=== PATIENT | female | born 1975 | race Caucasian/White ===

== ENCOUNTER → 2017-06-25 13:58 | Outpatient (CLI) | payer MEDICAID, SELFPAY ==
--- NOTE | 2017-06-25 14:02 | RAD_ITS ---
STUDY: X-RAY - LEFT RADIUS AND ULNA REASON FOR EXAM: Female, 41 years old. Wrist pain TECHNIQUE: 2 view(s) of the forearm. COMPARISON: None. FINDINGS: There is no demonstrated soft tissue swelling. Normal visualized radius. Normal visualized ulna. There are cystic changes in the lunate RAD/Forearm 2 Views IMPRESSION: Normal x-ray examination of the radius and ulna. Cystic changes in the lunate Electronically Signed: Manuel Booker MD, FACR at 14:39 EST , Service support ,
== END ==
PROVIDERS: Family Provider Family Medicine; PCP Family Medicine; Visit Provider Orthopaedic Surgery
DX: M25.532 Pain in left wrist (principal)
CPT/HCPCS: 73090

== ENCOUNTER → 2017-07-02 15:28 | Outpatient (CLI) | payer MEDICAID, SELFPAY ==
--- NOTE | 2017-07-02 15:30 | US_ITS ---
STUDY: SUPERFICIAL ULTRASOUND - LEFT WRIST. REASON FOR EXAM: Female, 41 years old. Possible ganglion cyst. TECHNIQUE: A superficial ultrasound was performed with real-time and static webber-scale imaging. COMPARISON: None. FINDINGS: The palpable abnormality corresponds to a 7 mm x 7 mm x 5 mm hypoechoic nodule most likely representing a ganglion cyst. US/Ext Non Vasc Limited/Soft Tiss IMPRESSION: The palpable abnormality most likely corresponds to a ganglion cyst. Electronically Signed: Vasile Hernandez MD at 7:56 EST Tel [phone], Service support ,
== END ==
PROVIDERS: Family Provider Family Medicine; PCP Family Medicine; Visit Provider Orthopaedic Surgery
DX: M67.40 Ganglion, unspecified site (principal)
CPT/HCPCS: 76882

== ENCOUNTER 2017-08-18 15:26 | Emergency (ER) | payer MEDICAID, SELFPAY ==
[2017-08-18 15:27] VITALS: BP 141/94; PULSE 114; RESP 16; TEMP 36.9; O2SAT 98; BMI 28.3
--- NOTE | 2017-08-18 15:40 | ED.VISSUMM ---
- ER Visit Summary Date of Service: 08/18/17 Chief Complaint: [] Migraine headache History of Present Illness: The patient is a 41 F [] complaining of 2 days of migraine headache. Reports she recently seen by her new neurologist who started her on Topamax last week. She reports she has had increased stress test her daughter is admitted here currently for appendicitis. She reports mild nausea. Denies vomiting. No other complaints at this time. Reports a history of migraines for several years. Physical Examination: [] Afebrile, vital signs stable. 41-year-old female no acute distress. Cardiovascular exam is regular rate and rhythm. Lungs are clear to auscultation. Abdomen is soft and nontender. Test Results: [] None. Emergency Department Course and Treatment: [] Patient given intravenous fluids, Compazine, Toradol, Benadryl. On serial exam she had improvement of symptoms. Treatment Plan: [] Follow-up with neurologist. Disposition: [] Discharge, stable. Impression: [] Migraine headache This note was generated with [employer] dictation software. It may contain incorrect words, spelling, and punctuation that were not noted in review of the chart prior to signing ED Disposition - Plan for ED Patient: Chief Complaint: Headache Referrals: Dalton Ferrari MD [Primary Care Provider] -
[2017-08-18] MEDS: Ketorolac 30 MG/ML Syringe 15 MG IV (16:12)
[2017-08-18] MEDS: DiphenhydrAMINE 50 MG/ML Syringe 25 MG IV (16:12)
[2017-08-18] MEDS: proCHLORPERazine 10 MG/2 ML Vial IM (16:12)
--- NOTE | 2017-08-18 17:08 | ED.DEP ---
ED Disposition - Plan for ED Patient: Disposition: Home or Assisted Living Chief Complaint: Headache Instructions: ED Headache Migraine Referrals: Dalton Ferrari MD [Primary Care Provider] -
== END 2017-08-18 17:30 | disposition home or self-care (01) ==
PROVIDERS: Emergency Provider Emergency Medicine; Family Provider Family Medicine; PCP Family Medicine
DX: G43.909 Migraine, unspecified, not intractable, without status migrainosus (principal); Z79.899 Other long term (current) drug therapy; Z72.0 Tobacco use
CPT/HCPCS: 96361; 96372; 96374; 96375; 99283; J7030; J7040; A4216

== ENCOUNTER → 2017-08-22 13:16 | Outpatient (CLI) | payer MEDICAID, SELFPAY ==
--- NOTE | 2017-08-22 13:15 | MRI_ITS ---
STUDY: MRI BRAIN WITHOUT CONTRAST REASON FOR EXAM: Female, 41 years old. Increasing headaches TECHNIQUE: Standardized multiplanar fat and water weighted pulse sequences were obtained. COMPARISON: CT of the brain on March 19, 2017 FINDINGS: Normal size of the ventricles and extra-axial spaces for the patient's age. There are a few high signal densities within the periventricular white matter without mass effect or restricted diffusion. Normal bilateral basal ganglia. Normal thalami. There is no extra-axial fluid accumulation. On the gradient echo weighted imaging sequence there are foci of signal dropout in the right frontal lobe which may be secondary to prior hemorrhagic contusions. Normal flow voids within the major intracranial circulation suggesting patency by spin echo criteria. Normal sella turcica, pituitary gland, infundibular stalk, optic chiasm and hypothalamus. Normal tectal plate and pineal gland. Normal midbrain, viv and medulla. Normal cerebellum. Normal basal cisterns. Normal bilateral temporal bones. Normal bilateral internal auditory canals. No demonstrated orbital abnormality, within the constraints of a routine brain study. Normal visualized paranasal sinuses. Normal calvarium and skull base. Normal visualized soft tissue structures. Normal visualized upper cervical spine. MRI/Brain without Contrast IMPRESSION: Minor nonspecific white matter disease most likely small vessel ischemic changes without evidence for acute infarct. . Findings which may be consistent with old posttraumatic hemorrhagic contusions in the right frontal lobe however clinical correlation is recommended in this regard. Electronically Signed: Segun Garnett MD at 16:27 EDT , Service support ,
== END ==
PROVIDERS: Family Provider Family Medicine; PCP Family Medicine; Visit Provider Psychiatry & Neurology Neurology
DX: R51 Headache (principal)
CPT/HCPCS: 70551

== ENCOUNTER 2017-09-09 18:34 | Emergency (ER) | payer MEDICAID, SELFPAY ==
[2017-09-09 18:36] VITALS: BP 140/107; PULSE 135; RESP 17; TEMP 36.7; O2SAT 96; BMI 28.2
[2017-09-09] MEDS: proCHLORPERazine 10 MG/2 ML Vial IV (19:09)
[2017-09-09] MEDS: Ketorolac 30 MG/ML Syringe IV (19:09)
[2017-09-09] MEDS: MethylPREDNISolone 125 MG/2 ML Vial IV (19:09)
[2017-09-09] MEDS: DiphenhydrAMINE 50 MG/ML Syringe 25 MG IV (19:09)
[2017-09-09] MEDS: 0.9% Normal Saline 1,000 ML 999 ML IV (19:09)
--- NOTE | 2017-09-09 20:58 | ED.VISSUMM ---
- ER Visit Summary Date of Service: 09/09/17 Chief Complaint: Headache History of Present Illness: The patient is a 41 F presenting for evaluation secondary to headache. Patient has an underlying history of migraines, she is on Imitrex and Topamax. Patient states that she has had a headache of gradual onset since yesterday. She describes it as a throbbing bitemporal headache worse with exposure to light and has been associated with nausea vomiting and preceding aura. Patient states that taking Imitrex as well as Excedrin has alleviated this. She denies any recent fevers head injuries neck stiffness or rashes. Review of systems otherwise negative. Physical Examination: Vital signs: Within normal limits General: Well-nourished well-developed no acute distress Head: Normocephalic atraumatic, no temporal artery tenderness or vesicular rash noted. No sinus tenderness to percussion. Eyes: PERRLA, EOMI. Direct funduscopy shows no evidence of hemorrhage or papilledema. Neck: Supple, no lymphadenopathy, no JVD no meningismus. Negative Brudzinski, Kernig, jolt, and heel strike Cardiovascular: Heart regular rate and rhythm no murmurs Respiratory: Lung sounds clear to auscultation bilaterally no respiratory distress Abdomen: Soft, nontender Extremities: Nontender, no edema Skin: Normal color, no rash, no evidence of petechia Neuro: Alert and oriented ?4, cranial nerves II through XII intact, normal strength, sensation Test Results: None indicated Emergency Department Course and Treatment: Patient presented secondary to a migraine headache. There is no indication for neuroimaging. Patient was treated with Compazine Toradol and Benadryl had some dramatic improvement on repeat evaluation. At this point patient was discharged with continued home management follow-up with neurology. Disposition: Discharge Impression: 1. Migraine headache without status migrainosus, not intractable This note was generated with [employer] dictation software. It may contain incorrect words, spelling, and punctuation that were not noted in review of the chart prior to signing ED Disposition - Plan for ED Patient: Disposition: Home or Assisted Living Chief Complaint: Headache Diagnosis: Migraine Instructions: ED Headache Migraine Additional Instructions: Followup with neurology
[2017-09-09 21:06] VITALS: BP 130/99; PULSE 122; RESP 19; O2SAT 98
--- NOTE | 2017-09-09 21:07 | ED.RN ---
IV DC'ED, CATHETER INTACT, SMALL GAUZE DRESSING PLACED. DISCHARGE INSTRUCTIONS GIVEN TO AND REVIEWED WITH PATIENT, PATIENT DENIES QUESTIONS OR CONCERNS AND VOICES UNDERSTANDING OF DISCHARGE INSTRUCTIONS. PT AMBULATES OUT OF ROOM WITHOUT DIFFICULTY.
== END 2017-09-09 21:07 | disposition home or self-care (01) ==
PROVIDERS: Emergency Provider Emergency Medicine; Family Provider Family Medicine; PCP Family Medicine
DX: G43.909 Migraine, unspecified, not intractable, without status migrainosus (principal); Z79.899 Other long term (current) drug therapy
CPT/HCPCS: 96361; 96374; 96375; 99283; J7030; A4216

== ENCOUNTER 2017-10-12 19:02 | Emergency (ER) | payer MEDICAID, SELFPAY ==
[2017-10-12 19:03] VITALS: BP 127/81; PULSE 78; RESP 17; TEMP 37.4; O2SAT 95; BMI 28.3
--- NOTE | 2017-10-12 19:51 | ED.VISSUMM ---
- ER Visit Summary Date of Service: 10/12/17 Chief Complaint: [] Right lower dental pain for weeks History of Present Illness: The patient is a 41 F [] weeks of complaints of pain to the right lower tooth she can get a ride to the dentist office she comes to the emergency department no fever no cough no facial swelling has had dental cavities in the past and believes she has one now involving this tooth Denies any past history or complaints Physical Examination: [] She is in no distress her vital signs are within normal range she points to 1 of the right lower teeth incisor/ canine does appear to have possibly an early cavity at the very top of the tooth. The gingival gumline is not involved no swelling the floor the mouth and tongue are unremarkable her speech is normal there is no facial swelling full mouth opening no redness no warmth no drainage the rest of her exams unremarkable see the template Test Results: [] Emergency Department Course and Treatment: [] to her that chronic dental pain really cannot be managed in the emergency department she will be started on Pen-Vee K Naprosyn I explained her she must follow-up and see a dentist for this condition and she will do so Treatment Plan: [] Disposition: [] Home stable Impression: [] rt Lower dental pain This note was generated with [employer] dictation software. It may contain incorrect words, spelling, and punctuation that were not noted in review of the chart prior to signing ED Disposition - Plan for ED Patient: Chief Complaint: Dental Referrals: Dalton Ferrari MD [Primary Care Provider] -
--- NOTE | 2017-10-12 19:53 | ED.DEP ---
ED Disposition - Plan for ED Patient: Chief Complaint: Dental Instructions: ED Cavity Dental Prescriptions: Naproxen [Naprosyn] 500 mg PO BID PRN #20 tab Penicillin V Potassium 500 mg PO 4X/DAY #40 tab Referrals: Dalton Ferrari MD [Primary Care Provider] -
[2017-10-12] MEDS: Ketorolac 60 MG/2 ML Vial IM (19:55)
[2017-10-12 20:15] VITALS: PULSE 76; RESP 16
== END 2017-10-12 20:15 | disposition home or self-care (01) ==
LOC: ED 19:50
PROVIDERS: Emergency Provider Emergency Medicine; Family Provider Family Medicine; PCP Family Medicine
DX: K08.89 Other specified disorders of teeth and supporting structures (principal); Z79.899 Other long term (current) drug therapy
CPT/HCPCS: 96372; 99283

== ENCOUNTER 2018-02-05 11:42 | Day surgery (SDC) | payer MEDICAID, SELFPAY ==
[2018-02-05 12:11] VITALS: BP 119/82; PULSE 80; RESP 18; TEMP 36.6; O2SAT 98; BMI 27.1
--- NOTE | 2018-02-05 13:15 | GANG_PTH ---
PATIENT: ADRIANNA ALATORRE LOC: [facility] – [place] U#:[id number] AGE/SX: 42/F ROOM: RE02/05/[address]: Dr. Anjana Moon DO : 1975 BED: DIS: 02/05/2018 SPEC #: [id number] RECD: 02/05/18 16:17 STATUS: ENZO GIULIA #: [id number] MIMA: 02/05/18 13:[address]: Anjana Moon DEPT: SURGICAL PATHOLOGY RECD BY: Graham Rowan ENTERED: 02/06/18 09:21 SP TYPE: GANGLION OTHR DR: Dr. Dalton Ferrari MD Tissues: GANGLION CYST Procedures: Surgery Specimen Level III HEADER OPERATION: Excision, ganglion, wrist PRE-OP DIAGNOSIS: Ganglion cyst TISSUE SUBMITTED: Ganglion cyst MICROSCOPIC DIAGNOSIS Ganglion cyst, biopsy: A piece of fibroadipose and fibroconnective tissue with reactive changes. See comment. SJ:patricia 02/07/18 COMMENT Changes consistent with ganglion cyst are not seen. MICROSCOPIC DESCRIPTION Slides are reviewed. GROSS DESCRIPTION Received in fixative is one container labeled with the patient's name and designated left wrist. The specimen consists of a piece of light yellow adipose soft tissue measuring 1 x 0.6 x 0.5 cm. The specimen is bisected and submitted entirely in one cassette. / BABS:patricia 02/06/18 TC:5 CPT: 24517
[2018-02-05] MEDS: Cefazolin 2 GM in 0.9% Normal Saline 100 ML IV (15:22)
--- NOTE | 2018-02-05 15:27 | DCINST_ITS ---
Discharge Diet: No Restrictions - leave dressing clean, dry, and intact; follow up in 2 wks, call with concern Discharge Activity: May Not Drive May shower in (days): 1 Ice area for (Minutes): 20 - Every hour while awake. Weight Bearing Status: Weight bearing as tolerated Keep extremity elevated above heart level: Operative Extremity Call your doctor if your incision/area has: Continuous Slow Oozing, Sudden I ncreased Bleeding, Increased Pain/ Swelling, Increased Redness, Foul Smelling Discharge Call your doctor if you observe: Fever of 101 or Higher, Coldness, Increased Pain, Numbness or Tingling, Change in Color, Calf discomfort Allergies/Adverse Reactions: Allergies atorvastatin calcium [From Lipitor] Allergy (Verified 01/30/18 08:58) Other NUMBNESS,INCREASED HR venom-honey bee [bee venom (honey bee)] Allergy (Verified 01/30/18 08:58) Swelling sertraline HCl [From Zoloft] Adverse Reaction (Verified 01/30/18 08:58) Other Medications to take at Discharge Epinephrine [Epi Pen] 0.3 mg IM X1 07/11/16 Diazepam 2 mg PO PRN PRN 02/08/17 Topiramate [Topamax] 50 mg PO QHS 08/18/17 Sumatriptan Succinate 100 mg PO PRN PRN 09/09/17 Metoprolol Tartrate [Lopressor (Beta Zoey)] 50 mg PO DAILY 10/12/17 Acetaminophen/Codeine #3 [Tylenol #3 Tablet] 1 - 2 tablet PO Q6H PRN PRN #30 tablet 02/05/18 The following prescriptions were given: Acetaminophen/Codeine #3 [Tylenol #3 Tablet] 1 - 2 tablet PO Q6H PRN PRN #30 tablet PRN Reason: Pain Primary Care Physician: Dalton Ferrari MD [Primary Care Provider] - Test Results: Test results from this visit will be discussed in further detail at your follow- up appointment, if applicable. Please Follow Up With: Anjana Moon, DO - [phone]
--- NOTE | 2018-02-05 15:28 | OP.PCM_ITS ---
Report of Operation Date of Procedure: 02/05/18 Pre-Operative Diagnosis: left painful volar ganglion cyst Post-Operative Diagnosis: left volar flexor tenosynovitis Surgery/Procedure Performed:: left volar flexor synovitis excision business applications analyst: Hi Moses Type of Anesthesia:: Block,[place] Anesthesiologist: Wil Casey Estimated Blood Loss (mL): minimal Fluids Replaced: 800ml lr Description of Procedure: Preoperative note Preoperative note Patient is a 42-year-old with pain along her volar radial aspect of her wrist ultrasound shows questionable ganglion cyst but is quite small. At this point because she is having so much pain we are going to do an evaluation to see if it is truly a ganglion cyst versus synovitis or some the else going on. Wrist benefits alternatives surgery discussed with patient. Risks include but not limited to blood loss, blood clot, infection, neurovascular injury, failure procedure, loss of life and loss of limb. Patient is aware like proceed with left volar cyst versus synovial tissue versus lipoma excision. Next Operative note Patient seen and examined preoperative holding area. Left wrist was marked. Who palpated the superficial nodule. Patient was brought to the operating room placed supine on the operating table. Sign, anesthesia, antibiotics were measured. The patient received a Dannielle block. We then prepped and draped the arm in standard fashion the incision was marked out on top of the palpable nodule. Timeout was performed. We then used forceps to ensure that there was no pain sure that the block was working which it was. We then made a 2 cm incision over top of the palpable lump we dissected down with tenotomies to the level of the palpable nodule. It appeared to be a synovitis wrapped around the flexor tendons. These were excised and sent to pathology for further evaluation. There is no other defects we were able to palpate all the way down to the where the nerve in the bone as there is no obvious other mass or tumor or other lesion distal aspect of the wrist just this synovitis that was around the flexor tendon sheath. We then irrigated the incision with copious amounts of saline and the incision was closed with interrupted 4 nylons nylon in a sterile dressing. The tourniquet was deflated for a total working time of 32 minutes. Patient tolerated procedure well and there were no complications. Transferred to recovery room in stable condition. Postoperative note Follow-up in 2 weeks for suture removal next Follow-up call with concerns leave dressing intact Pharmacy has prescriptions This note was generated with [employer] dictation software. It may contain incorrect words, spelling, and punctuation that were not noted in checking the note before signing.
[2018-02-05] MEDS: Mupirocin Ointment 22gm Tube 1 APPLIC (15:47)
[2018-02-05 16:17] VITALS: BP 115/77; BP 119/82; PULSE 80; RESP 16; TEMP 37.1; O2SAT 97
[2018-02-05 16:25] VITALS: BP 117/80; BP 119/82; PULSE 81; RESP 14; O2SAT 99
[2018-02-05 16:29] VITALS: BP 112/73; BP 119/82; PULSE 77; RESP 16; O2SAT 98
[2018-02-05 17:00] VITALS: BP 119/82
== END 2018-02-05 16:59 | disposition home or self-care (01) ==
LOC: SDC 11:43 → AC 11:44
PROVIDERS: Family Provider Family Medicine; PCP Family Medicine; Visit Provider Orthopaedic Surgery
PROC: (CPT 25105; principal; 2018-02-05 13:00)
DX: M67.432 Ganglion, left wrist (principal); M65.88 Other synovitis and tenosynovitis, other site; I10 Essential (primary) hypertension; G43.909 Migraine, unspecified, not intractable, without status migrainosus; F41.9 Anxiety disorder, unspecified; F17.200 Nicotine dependence, unspecified, uncomplicated; Z79.899 Other long term (current) drug therapy
CPT/HCPCS: 01810; 25105; 88304; J7120; J2405

== ENCOUNTER 2018-02-18 18:55 | Emergency (ER) | payer MEDICAID, SELFPAY ==
[2018-02-18 18:56] VITALS: BP 150/89; PULSE 75; RESP 16; TEMP 36.1; O2SAT 99; BMI 27.3
--- NOTE | 2018-02-18 19:43 | ED.VISSUMM ---
- ER Visit Summary Date of Service: 02/18/18 Chief Complaint: Left wrist pain History of Present Illness: The patient is a 42 F who had left wrist surgery 2 weeks ago. She has small lipoma removed from a tendon. Stitches were supposed to come out today, but patient states that 3 of the stitches were left in because the wound was still moist. Steri-Strips were placed. She states that she used her left hand today and felt a pop along the wrist followed by a throbbing sensation. The ulnar side of the incision is now more swollen. She complains of pain radiating up the wrist and into the palm. Physical Examination: Vital signs unremarkable. Patient sitting in a bedside chair. Left upper extremity examination reveals incision on the volar aspect of the left wrist with Steri-Strips and sutures intact. There is minimal fullness with early ecchymosis along the ulnar side of the incision. There is increased pain with wrist extension. She has normal cap refill and sensation. Test Results: [] Emergency Department Course and Treatment: I spoke with Dr. Moon. Patient is to be treated with anti-inflammatories and the PA will see her in the office this week for follow-up. Gauze and Gideon wrap are applied to the area. Patient is given a new prescription for naproxen. Treatment Plan: [] Disposition: Discharge Impression: Left wrist postop pain This note was generated with [employer] dictation software. It may contain incorrect words, spelling, and punctuation that were not noted in review of the chart prior to signing ED Disposition - Plan for ED Patient: Disposition: Home or Assisted Living Chief Complaint: Upper Extremity Injury Instructions: ED Wound Check Post Op No Infec Prescriptions: Naproxen [Naprosyn] 500 mg PO BID PRN PRN #20 tablet PRN Reason: Pain Referrals: Anjana Moon DO [STAFF PHYSICIAN] - 2 Days Additional Instructions: Follow-up with PA in Dr Moon's office this week
[2018-02-18 19:49] VITALS: BP 127/92; PULSE 69; RESP 16; O2SAT 97
[2018-02-18 19:56] VITALS: BP 127/92; PULSE 68; RESP 16; O2SAT 98
== END 2018-02-18 19:59 | disposition home or self-care (01) ==
PROVIDERS: Emergency Provider Emergency Medicine; Family Provider Family Medicine; PCP Family Medicine
DX: G89.18 Other acute postprocedural pain (principal); M25.532 Pain in left wrist; Z72.0 Tobacco use; Z79.899 Other long term (current) drug therapy
CPT/HCPCS: 99282

== ENCOUNTER → 2018-10-08 | Outpatient (CLI) | payer MEDICAID, SELFPAY ==
[2018-09-18 10:39] VITALS: BMI 27.4
--- NOTE | 2018-10-08 16:12 | MRI_ITS ---
STUDY: MRI RIGHT SHOULDER REASON FOR EXAM: Chronic right shoulder pain, limited range of motion. TECHNIQUE: Standardized fat and water weighted pulse sequences were obtained in all 3 orthogonal planes. COMPARISON: Radiographs 07/09/2016. FINDINGS: There is a signal void in the distal anterior supraspinatus tendon (proton density coronal image 15) measuring 0.9 cm in length consistent with calcific tendinitis. There is no discrete tear of the supraspinatus tendon. There is mild infraspinatus tendinosis (T2 coronal image 8) without discrete tendon tear. Normal subscapularis tendon. Normal teres minor tendon. Normal supraspinatus muscle. Normal infraspinatus muscle. Normal subscapularis muscle. Normal teres minor muscle. Normal glenohumeral articulation. Normal humeral head and visualized proximal humerus. Normal biceps labral complex. Normal intracapsular long biceps tendon. Normal labrum. Normal capsulo- ligamentous complex. Normal acromioclavicular articulation. There is a Type II morphology (curved), with a neutral orientation. There is no subacromial-subdeltoid bursal fluid. Normal visualized coracohumeral and coracoacromial ligaments. Normal deltoid muscle. Normal trapezius muscle. MRI/Upper Ext Joint Only(Routine) IMPRESSION: Supraspinatus calcific tendinitis without demonstrated rotator cuff tear. Mild infraspinatus tendinosis. Electronically Signed: Giuseppe Lazaro MD at 7:42 EDT Tel , Service support ,
== END | disposition home or self-care (01) ==
LOC: MRI 16:01
PROVIDERS: Family Provider Family Medicine; PCP Family Medicine; Referring Provider Orthopaedic Surgery; Visit Provider Orthopaedic Surgery
DX: M75.101 Unspecified rotator cuff tear or rupture of right shoulder, not specified as traumatic (principal); M75.31 Calcific tendinitis of right shoulder
CPT/HCPCS: 73221

== ENCOUNTER 2018-10-29 08:23 | Day surgery (SDC) | payer MEDICAID, SELFPAY ==
[2018-10-14 14:18] VITALS: BMI 27.4
--- NOTE | 2018-10-21 11:23 | HP_ITS ---
Insert insert H&P no changes I have re-examined the patient. There are no clinical changes since date of exam. Intake Vital Signs 10/14/18 Body Mass Index (BMI) 27.4 Intake Visit Reasons: RIGHT SHOULDER Chief Complaint: Right shoulder Allergies atorvastatin calcium [From Lipitor] Allergy (Verified 09/18/18 10:39) Other venom-honey bee [bee venom (honey bee)] Allergy (Verified 09/18/18 10:39) Swelling codeine [From Tylenol-Codeine] Adverse Reaction (Verified 09/18/18 11:21) headache sertraline HCl [From Zoloft] Adverse Reaction (Verified 09/18/18 10:39) Other Medications Epi Pen (for allergic rxn) [Epi Pen] 0.3 mg IM X1 07/11/16 [History Confirmed 02/18/18] Diazepam 2 mg PO PRN PRN 02/08/17 [History Confirmed 02/18/18] Topiramate [Topamax] 50 mg PO QHS 08/18/17 [History Confirmed 02/18/18] Sumatriptan Succinate 100 mg PO PRN PRN 09/09/17 [History Confirmed 02/18/18] Metoprolol Tartrate [Lopressor (Beta Zoey)] 50 mg PO DAILY 10/12/17 [History Confirmed 02/18/18] Naproxen [Naprosyn] 500 mg PO BID PRN PRN #20 tab 02/18/18 [Rx] PFSH Medical History History of hysterectomy (Acute) history of right femur surgry (Acute) Migraines (Chronic) Surgical History History of cholecystectomy (Acute) History of endometrial ablation (Acute) Status post correction of deviated nasal septum (Acute) S/P cholecystectomy (Inactive) broken femur (Inactive) Family History Mother Parkinsons disease Other Myocardial infarction Social History Smoking Status: Current every day smoker alcohol intake: never substance use type: does not use what type of physical activity do you participate in: walking frequency: 1-2 times per week HPI RIGHT SHOULDER: Surgical H&P: Yes Details: Parts of this documentation were recorded by a scribe, this documentation accurately reflects the service provided and the decisions made by me, Anjana Moon, 10/14/18 [id number]. ADRIANNA ALATORRE is a 42 year old F here today for F/U after MRI of right shoulder. Patient states her pain has not gotten any better. Denies numbness, tingling or other associated symptoms.Denies numbness, tingling or other associated symptoms. Reports that the injection given 06/16/18 was not effective for her pain as previously have been. Did not consult with pain management for her pain. ROS Const Reports system reviewed and no additional complaints, except as docu Eyes Reports system reviewed and no additional complaints, except as docu ENT Reports system reviewed and no additional complaints, except as docu Card Reports system reviewed and no additional complaints, except as docu Resp Reports system reviewed and no additional complaints, except as docu GI Reports system reviewed and no additional complaints, except as docu Musc Reports as per HPI Skin/Breast Reports system reviewed and no additional complaints, except as docu Neuro Yes system reviewed and no additional complaints, except as docu Psych Reports system reviewed and no additional complaints, except as docu Endo Reports system reviewed and no additional complaints, except as docu Palmer/Lymph Reports system reviewed and no additional complaints, except as docu Aller/Immun Reports system reviewed and no additional complaints, except as docu Ortho Exam Right Shoulder Testing: Positive Hawkin's, Neer's, Speed's, TTP Biceps, AROM-Forward Elevation 0-180, AROM-External Rotation at 90 0-60, AROM-External Rotation at side 0-60, PROM-External Rotation at side 0-60, PROM-External Rotation at 90 0-60 and PROM- Forward Elevation 0-180 Assessment & Plan Problems 1. Calcific tendinitis of right shoulder M75.31 Plan Reviewed the MRI report. Since patient has failed conservative tx she was educated that she could have surgery for calcific tendonitis debridement with possible RTC reconstruction along with subacromial decompression and repair as indicated. Patient would like to proceed with surgery since she has not had had the pain for 2 years and injections are not working as they were previously. Reviewed the pre-operative plans with the patient. Risks and benefits of the procedure were fully explained, including but not limited to infection, neurovascular injury, continued pain, arthritis, stiffness, need for further surgery, re-injury, DVT, PE, general risks of anesthesia, and loss of limb or life. The patient understands all the risks and does wish to proceed with written consent. Follow up 2 weeks post op or sooner if pain, swelling, numbness or associated symptoms, or concerns develop. All questions answered. Patient in agreement of plan. Coding Level of Care Code Off vis,est,level 4 Diagnoses Calcific tendinitis of right shoulder M75.31 10/21/18 1123 <Electronically signed by Anjana carter DO> Date _ Anjana Moon DO
[2018-10-29] VITALS (7 sets, daily range): BP systolic 110–144; BP diastolic 69–85; PULSE 55–73; RESP 16–18; TEMP 36.3–37.1; O2SAT 92–100; BMI 27.4
--- NOTE | 2018-10-29 08:34 | EKG12_ITS ---
Test Reason : PREOP Blood Pressure : / mmHG Vent. Rate : 053 BPM Atrial Rate : 053 BPM P-R Int : 188 ms QRS Dur : 070 ms QT Int : 400 ms P-R-T Axes : 011 007 010 degrees QTc Int : 375 ms Sinus bradycardia with sinus arrhythmia Otherwise normal ECG When compared with ECG of 16-JUL-2016 15:26, Vent. rate has decreased BY 44 BPM QT has shortened Confirmed by MOUNIKA ESTRELLA, HUDSON ([id number]), magazine editor GARIMA BAEZA ([id number]) on 11/04/2018 7:16:33 AM Referred By: Anjana Moon Confirmed By:JIMY RIBERA MD
[2018-10-29 09:05] LABS: Hematocrit 41.2 % (37-47); Hemoglobin 13.8 g/dl (12.0-15.0); Mean Corp Hgb Conc 33.5 g/gl (32-36); Mean Corpuscular Hgb 31.3 pg (27.0-32.0); Mean Corpuscular Volume 93.4 fL (81-99); Mean Platelet Vol. 10.3 fl (6.2-12.0); Platelet Count 313 K/mm3 (150-450); RBC Distribution Width CV 13.7 % (11.6-14.6); RBC Distribution Width SD 46.9 fl (35.1-43.9); Red Blood Count 4.41 M/mm3 (4.2-5.4); White Blood Count 8.5 K/mm3 (4.4-11.0)
[2018-10-29 09:08] LABS: Scan Indicated on CBC? Y/N NO
[2018-10-29 09:15] LABS: Partial Thromboplast Time 36.8 Seconds (24.1-36.2)
[2018-10-29] MEDS: Cefazolin 2 GM in 0.9% Normal Saline 100 ML IV (11:13)
--- NOTE | 2018-10-29 11:22 | PCM.DC.ORTHO ---
Discharge Diet: No Restrictions - remove dressings in 4 days and apply bandaids to incision sites, follow up in 2 weeks, call with concerns, may bend and extend the elbow but no active range of motion of shoulder. May remove sling to shower. Discharge Activity: May Not Drive May shower in (days): 1 Ice area for (Minutes): 20 - Every hour while awake. Weight Bearing Status: Weight bearing as tolerated Keep extremity elevated above heart level: Operative Extremity Call your doctor if your incision/area has: Continuous Slow Oozing, Sudden Increased Bleeding, Increased Pain/ Swelling, Increased Redness, Foul Smelling Discharge Call your doctor if you observe: Fever of 101 or Higher, Coldness, Increased Pain, Numbness or Tingling, Change in Color, Calf discomfort Allergies/Adverse Reactions: Allergies atorvastatin calcium [From Lipitor] Allergy (Verified 10/22/18 09:08) Other NUMBNESS,INCREASED HR venom-honey bee [bee venom (honey bee)] Allergy (Verified 10/22/18 09:08) Swelling codeine [From Tylenol-Codeine] Adverse Reaction (Verified 10/22/18 09:08) headache MIGRAINE sertraline HCl [From Zoloft] Adverse Reaction (Verified 10/22/18 09:08) Other Medications to take at Discharge Epi Pen (for allergic rxn) [Epi Pen] 0.3 mg IM X1 07/11/16 Diazepam 2 mg PO PRN PRN 02/08/17 Sumatriptan Succinate 100 mg PO PRN PRN 09/09/17 Metoprolol Tartrate [Lopressor (Beta Zoey)] 50 mg PO BID 10/12/17 Oxycodone HCl/Acetaminophen [Percocet 5/325] 1 - 2 tab PO Q6H PRN PRN 5 Days #28 tab 10/29/18 Zolpidem Tartrate [Ambien (Generic)] 5 mg PO QHS PRN PRN #14 tab 10/29/18 The following prescriptions were given: Zolpidem Tartrate [Ambien (Generic)] 5 mg PO QHS PRN PRN #14 tab PRN Reason: Insomnia Transmission Status: Received by [facility] Oxycodone HCl/Acetaminophen [Percocet 5/325] 1 - 2 tab PO Q6H PRN PRN 5 Days #28 tab PRN Reason: Pain Transmission Status: Received by [facility] Orders to be completed after discharge: 12 Lead EKG [CVS] Time Frame: 10/22/18, Facility: [facility], Location: Cardiovascular Services CBC-Complete Blood Cnt No Diff Time Frame: 10/22/18, Location: Laboratory Partial Thromboplast Time Time Frame: 10/22/18, Location: Laboratory Primary Care Physician: Dalton Ferrari MD [Primary Care Provider] - Test Results: Test results from this visit will be discussed in further detail at your follow-up appointment, if applicable. Please Follow Up With: Anjana Moon, DO - [phone]
--- NOTE | 2018-10-29 11:23 | OP.PCM_ITS ---
Report of Operation Date of Procedure: 10/29/18 Pre-Operative Diagnosis: Right shoulder calcific tendinitis, impingement s yndrome, labral fraying Post-Operative Diagnosis: same Surgery/Procedure Performed:: Right shoulder arthroscopy, labral debridement, subacromial decompression/acromioplasty, calcific tendinitis debridement and rotator cuff repair chemist assistant: Hi Moses Type of Anesthesia:: General Anesthesiologist: Haris Cooper Estimated Blood Loss (mL): minimal Description of Procedure: Preop note Patient is a 42-year-old female with continued right shoulder pain for the last 2 years. She has sustained multiple injections into the shoulder with limited relief. She did have relief over period of time but is now increasingly painful with activities and affecting her activities of daily living. MRI confirms a calcific tendinitis question of labral fraying but rotator cuff intact for the most part and some bursitis. Risks benefits alternatives surgery discussed with patient. Risks including but not limited to blood loss, blood clot, infection, neurovascular injury, failure procedure, loss of life and loss of limb. Patient is aware like proceed with right shoulder arthroscopy repair is indicated. We did discuss if we remove the calcific tendinitis and that she was left with a gap in her rotator cuff the need for repair and patient is aware would like everything done today and in no need for issues down the line and down the road. Operative note next Patient seen and examined preoperative preoperative holding area. Right shoulder was marked. Patient brought to the operating placed supine on the operating table. Signing, anesthesia, antibiotics were administered. The right arm was prepped and draped in usual sterile fashion after. After patient was placed in beachchair positioning throughout shelter through beachchair positioning we did recheck her blood pressure which was stable throughout. All bony promises well-padded SCDs placed on her bilateral lower extremity. We marked out our bony landmarks for portal placement we injected the posterior aspect of her glenohumeral joint through the posterior portal with 60 cc of normal saline we did get good return back flow confirming intra-articular placement. We then began our diagnostic arthroscopy. Using 11 blade for a posterior portal began we able to visualize the glenohumeral joint which is intact no loose bodies in the inferior recess the subscap was intact we created an anterior portal under direct direct visualization. There is some anterior labral fraying at the insertion of the biceps anchor we did debride this back to see whether or not the anchor was unstable which it was not. The biceps was brought into the joint was pristine. There was no rotator cuff tear on the undersurface articular surface. We then moved to the subacromial space. There is extensive bursitis and inflammation throughout the subacromial space. We created a lateral portal under direct visualization. We debrided back with accommodation of a shaver and ablator wand the thickened bursa. We were able to visualize the calcium within the cuff this is initially attempted to be decompressed with a spinal needle however because of the extent of the calcium and we did start to resected back with a shaver and by doing so did compromise the integrity of the rotator cuff. We then placed a passport on this through the lateral portal radial then moved the scope to the lateral portal to ensure that we had complete reduction and excavation of the calcium from the rotator cuff which we did. Thank you we substance was visualized during decompression of the calcium deposit. This was complete we had a defect in the rotator cuff in the distal anterior aspect. We then placed 2 fiber wires in the marker and marginal convergence to bring the 2 ends of the rotator cuff back together and then did place a lateral row 4.75 swivel lock we had good reduction to the footprint at this time. The shoulder was irrigated with copious muscle sterile saline. The portals were closed with interrupted nylon stitches. Dressings were applied. The patient tolerated procedure well no comp occasions transferred recovery room in stable condition. Stop note Pictures given to [facility] pharmacy has prescriptions Follow-up in 2 weeks Call with concerns This note was generated with [employer] dictation software. It may contain incorrect words, spelling, and punctuation that were not noted in checking the note before signing.
[2018-10-29] MEDS: Epinephrine (1 mg/ml) 1 MG/ML VIAL (11:48)
[2018-10-29] MEDS: Mupirocin Ointment 22gm Tube 1 APPLIC (12:37)
[2018-10-29] MEDS: HYDROcodone Bitartrate/Apap 5/325 Tablet PO (14:04)
== END 2018-10-29 14:45 | disposition home or self-care (01) ==
LOC: SDC 08:24 → AC 08:25
PROVIDERS: Anesthesiology; Family Provider Family Medicine; PCP Family Medicine; Referring Provider Orthopaedic Surgery; Visit Provider Orthopaedic Surgery
PROC: (CPT 29827; principal; 2018-10-29 09:50)
DX: M75.31 Calcific tendinitis of right shoulder (principal); M75.41 Impingement syndrome of right shoulder; F17.200 Nicotine dependence, unspecified, uncomplicated; F41.9 Anxiety disorder, unspecified; I10 Essential (primary) hypertension; Z79.899 Other long term (current) drug therapy
CPT/HCPCS: 01630; 29823; 29826; 29827; 36415; 85027; 85730; 93005; J7120; J2405

== ENCOUNTER 2018-12-27 20:38 | Emergency (ER) | payer MEDICAID, SELFPAY ==
[2018-11-11 13:12] VITALS: BMI 27.4
[2018-12-27 20:40] VITALS: BP 120/94; PULSE 84; RESP 16; TEMP 36.8; O2SAT 97; BMI 26.4
[2018-12-27] MEDS: 0.9% Normal Saline 1,000 ML 1000 ML IV (21:47)
[2018-12-27] MEDS: proMETHazine 25 MG/ML Syringe 12.5 MG IV (21:47)
[2018-12-27] MEDS: DiphenhydrAMINE 50 MG/ML Syringe 25 MG IV (21:47)
[2018-12-27] MEDS: Ketorolac 30 MG/ML Syringe IV (21:47)
--- NOTE | 2018-12-27 22:46 | ED.VISSUMM ---
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 States that she is had a migraine headache today but 1 of her more severe ones. She has had them this bad before. She patient has headaches daily. Denies any vomiting, diarrhea or fever. No recent trauma. No sinus congestion. She states her normal home meds are working and occasionally when she has headache she is to come into the ER for the migraine cocktail. Physical Examination: Middle-aged female vital signs are stable she is afebrile. She is seated in a darkened room. HEENT exam pupils are reactive light. Positive photophobia. No facial droop. No facial trauma. Neck nontender no lymphadenopathy. No meningismus. Able to touch chin to chest. Lungs clear to auscultation bilaterally. Heart regular rhythm no murmur. Abdomen soft nontender. Extremities moves all 4. Neurovascular intact. 5 out of 5 supervisor [employer] strength. Dorsi plantarflexion intact. Back nontender. Skin normal. Neurologically she is awake and alert with no focal motor or sensory deficits. Normal speech. [id number] and [id number] within normal limits. Test Results: None Emergency Department Course and Treatment: Patient had prior imaging with an MRI in [address] of her brain in 2017. Neurologic exam is normal. She was treated with IV fluids, Benadryl, IV Phenergan and IV Toradol. On repeat exam at 2245 she is feeling much better. Her headache is resolving and she feels comfortable being discharged home to sleep it off. Her neurologic exam remains normal. Treatment Plan: Fluids and rest. Her home migraine headache medications. Return if worse. Disposition: Discharge Impression: Acute migraine headache This note was generated with [employer] dictation software. It may contain incorrect words, spelling, and punctuation that were not noted in review of the chart prior to signing ED Disposition - Plan for ED Patient: Referrals: Dalton Ferrari MD [Primary Care Provider] -
--- NOTE | 2018-12-27 22:49 | ED.DEP ---
ED Disposition - Plan for ED Patient: Disposition: Home or Assisted Living Instructions: ED, Migraine (Classical) Referrals: Dalton Ferrari MD [Primary Care Provider] - 3-5 Days if not improving Additional Instructions: Plenty of fluids and rest. Follow-up with your doctor if not improving return to ER if feeling worse.
[2018-12-27 23:01] VITALS: BP 148/94; PULSE 74; RESP 16
== END 2018-12-27 23:02 | disposition home or self-care (01) ==
PROVIDERS: Emergency Provider Emergency Medicine; Family Provider Family Medicine; PCP Family Medicine
DX: G43.909 Migraine, unspecified, not intractable, without status migrainosus (principal); Z87.820 Personal history of traumatic brain injury; I10 Essential (primary) hypertension; Z72.0 Tobacco use; Z79.899 Other long term (current) drug therapy
CPT/HCPCS: 96361; 96374; 96375; 99283

== ENCOUNTER 2019-01-28 20:07 | Emergency (ER) | payer MEDICAID, SELFPAY ==
[2019-01-28 20:08] VITALS: BP 115/82; PULSE 89; RESP 16; TEMP 35.8; O2SAT 98; BMI 25.7
--- NOTE | 2019-01-28 20:32 | ED.VISSUMM ---
- ER Visit Summary Date of Service: 01/28/19 Chief Complaint: Headache History of Present Illness: The patient is a [address] Ronnie Cartagena. She reports that she has a headache that began 3 days ago. Is gradually gotten worse. Some pressure on the right side of her head and forehead. Is 9 out of 10 at worst and 7-10 currently. It is worsened by noise. She is taking Chantelle and Imitrex without relief. She reports is been nauseated, but has not vomited. She denies any preceding aura. She denies photophobia. She reports that she has had similar headaches multiple times in the past. No recent injury. No fever. Physical Examination: Vitals: Stable. Afebrile. General: Well-nourished and well-developed. Head: Normocephalic atraumatic. Neck: Supple, no lymphadenopathy. No JVD. Nontender. Cardiovascular: Regular rate and rhythm. No murmurs. Respiratory: No respiratory distress. Clear to auscultation bilaterally. Abdominal: Soft, nontender, nondistended, normal bowel sounds. No guarding, rebound, or peritoneal signs. Back: Nontender. Extremities: Nontender, no edema. Skin: Normal color, no rash. Neurologic: Alert and oriented ?3. Cranial nerves II through XII are intact. Normal strength and sensation. Psych: Normal affect. Emergency Department Course and Treatment: Patient had an IV placed. She was given Toradol, Benadryl, and Reglan IV. She feels significant improvement. Treatment Plan: Patient will be discharged with symptomatic care. Follow-up with her primary care physician 1 to 2 days if not improving. Return to the emergency department for any worsening symptoms. Disposition: To home in improved and stable condition. Impression: 1. Migraine headache. This note was generated with [employer] software. It may contain incorrect words, spelling, and punctuation that were not noted in review of the chart prior to signing ED Disposition - Plan for ED Patient: Disposition: Home or Assisted Living Instructions: ED, Migraine (Classical) Referrals: Dalton Ferrari MD [Primary Care Provider] - 1-2 Days if not improving
[2019-01-28] MEDS: DiphenhydrAMINE 50 MG/ML Syringe IV (20:36)
[2019-01-28] MEDS: Metoclopramide 10 MG/2 ML Vial IV (20:36)
[2019-01-28] MEDS: Ketorolac 30 MG/ML Syringe IV (20:36)
[2019-01-28] MEDS: 0.9% Normal Saline 1,000 ML 999 ML IV (20:37)
[2019-01-28 22:00] VITALS: BP 125/78; PULSE 86; RESP 16; O2SAT 100
--- NOTE | 2019-01-28 22:17 | ED.RN ---
PT STATED HER MOM WAS COMING TO PICK HER UP. SHE AMBULATED TO THE LOBBY WITH A STEADY AND INDEPENDENT GAIT.
== END 2019-01-28 22:00 | disposition home or self-care (01) ==
LOC: ED 20:33
PROVIDERS: Emergency Provider Emergency Medicine; Family Provider Family Medicine; PCP Family Medicine
DX: G43.909 Migraine, unspecified, not intractable, without status migrainosus (principal); I10 Essential (primary) hypertension; Z72.0 Tobacco use; Z79.899 Other long term (current) drug therapy
CPT/HCPCS: 96361; 96374; 96375; 99283; J7030; A4216